=== PATIENT | male | born 1985 | race African-American/Black ===

== ENCOUNTER 2018-11-16 11:30 | Emergency (ER) | payer MEDICAID ==
[~2018-11-16] VITALS: Ht 180.3 cm; Wt 81.2 kg
--- NOTE | 2018-11-16 11:43 | NUR ---
ED Nurse Note: Pt came into the ER w/ complaints of constipation x 4 days. A + O x4. Ambulatory. Skin warm to touch. Denies pain, n, v.
[2018-11-16 11:44] VITALS: BP 115/77
[2018-11-16] MEDS ORDERED: NKM (11:45)
--- NOTE | 2018-11-16 12:10 | NUR ---
ED Nurse Note: Xray at the bedside.
--- NOTE | 2018-11-16 12:18 | Emergency Room Report ---
History of Present Illness General Chief Complaint: Constipation Source: Patient Present Illness HPI 32-year-old male patient presents the ER complaining of constipation for the past several days. Reports prior to onset of constipation he had some diarrhea after taking Ex-Lax laxatives. States has not taken laxatives for several days. Reports able to pass flatus. Denies abdominal pain. Denies fever, chest pain, shortness of breath. Denies other aggravating or relieving factors. Denies recent travel outside the country. Denies blood in stool. Denies blood in diarrhea. denies other aggravating or relieving factors. States has been able to tolerate PO fluids and food. Allergies: Coded Allergies: No Known Allergies (Unverified , 11/16/18) Patient History Past Medical History: see triage record Reviewed Nursing Documentation: PMH: Agreed; PSxH: Agreed Nursing Documentation-PMH Past Medical History: No Stated History Review of Systems All Other Systems: negative except mentioned in HPI Physical Exam Vital Signs Date Time Temp Pulse Resp B/P (MAP) Pulse Ox O2 Delivery O2 Flow Rate FiO2 11/16/18 11:39 98.1 55 15 118/72 98 Room Air Sp02 EP Interpretation: reviewed, normal Head: normocephalic, atraumatic Eyes: bilateral eye normal inspection, bilateral eye PERRL ENT: hearing grossly normal, normal pharynx, no angioedema, normal voice, uvula midline, moist mucus membranes Neck: full range of motion Respiratory: lungs clear, normal breath sounds, no rhonchi, no respiratory distress, no accessory muscle use, no wheezing, speaking full sentences Cardiovascular #1: regular rate, rhythm, no edema Gastrointestinal: non tender, soft, no mass, non-distended, no guarding, no rebound Musculoskeletal: back normal, digits/nails normal, gait/station normal, normal range of motion, non-tender Neurologic: alert, oriented x3, responsive, motor strength/tone normal, sensory intact Psychiatric: mood/affect normal Skin: no rash Medical Decision Making PA Attestation Dr. Torres is my supervising Physician whom patient management has been discussed with. Diagnostic Impression: Primary Impression: Constipation ER Course Pt presents to ED c/o generalized abdominal pain. DDX considered but are not limited to cystitis, pyelonephritis, constipation, SBO, fecal impaction. Low suspicion for appendicitis, no TTP at McBurney's point, negative Rovsing sign. VITAL SIGNS are WNL, patient is afebrile. ER COURSE No abdominal TTP. bowel sounds normal, low suspicion for SBO. KUB shows mild constipation. Patient is resting comfortably in chair, nontoxic appearing, in no acute distress. Patient states they feel better and is ready to go home. ER precautions given. DISCHARGE: -Rx provided for Lactulose Will provide with patient care instructions and any necessary prescriptions. Patient understands and agrees to treatment plan. Patient encouraged to drink plenty of fluids. Patient to take medication as instructed. Care plan and follow-up instructions provided. Patient questions asked and answered. Patient instructed to follow-up with room service clerk in 3 - 5 days. ER precautions given. Patient instructed to return to ER immediately for any new or worsening of symptoms. Including but not limited to fever, worsening pain , intractable vomiting. - Please note that this Emergency Department Report was dictated using [employer] member technology software, occasionally this can lead to erroneous entry secondary to interpretation by the dictation equipment.ient is afebrile. Other X-Ray Diagnostic Results Other X-Ray Diagnostic Results : X-Ray ordered: KUB # of Views/Limited Vs Complete: 1 View Indication: Pain EP Interpretation: Yes PA Xray: Interpretation reviewed, by supervising MD, and agrees with findings. Interpretation: no dislocation, no soft tissue swelling, no fractures, nonspecific bowel gas, no sbo, other - Mild fecal retention in the descending colon and rectum suggesting mild constipation Impression: Other - Constipation PA Scribe Text Cristhian Bland PA-Lorne Last Vital Signs Date Time Temp Pulse Resp B/P (MAP) Pulse Ox O2 Delivery O2 Flow Rate FiO2 11/16/18 11:44 98.1 78 18 115/77 98 Room Air Disposition: HOME, SELF-CARE Condition: Stable Scripts Lactulose (LACTULOSE*) 20 Gm/30 Ml Solution 30 ML ORAL DAILY for 4 Days, #120 ML 0 Refills Prov: Jeffery Bland 11/16/18 Patient Instructions: Constipation, Adult Additional Instructions: Followup with primary care provider in 3 -5 days. Drink plenty of fluids. Take medications as directed. Patient questions asked and answered. ER precautions given, patient instructed to return to ER immediately for any new or worsening of symptoms. Jeffery Bland Nov 16, 2018 12:18
--- NOTE | 2018-11-16 12:24 | Diagnostic Imaging Report ---
EXAM: XR Abdomen, 2 Views CLINICAL HISTORY: Constipation TECHNIQUE: Frontal supine views of the abdomen/pelvis. COMPARISON: No relevant prior studies available. FINDINGS: Lower thorax: The lung bases appear clear. Intraperitoneal space: No visible free air under the diaphragm. Gastrointestinal tract: Mild fecal retention in the descending colon and rectum, which suggests mild constipation. Bowel gas pattern is otherwise unremarkable. No evidence of pneumatosis intestinalis. Organs: Renal shadows are obscured by overlying bowel gas. No abnormal calcifications in the abdomen or pelvis. Bones/joints: Unremarkable. IMPRESSION: Mild fecal retention in the descending colon and rectum, suggesting mild constipation.
[2018-11-16] MEDS ORDERED: LACTULOSE20 GM/301 ORAL (12:36)
--- NOTE | 2018-11-16 12:47 | NUR ---
ER DISCHARGE NOTE: Patient is cleared to be discharged per ERMD, pt is aox4, on room air, with stable vital signs. pt was given dc and prescription instructions, pt was able to verbalize understanding, pt id band removed without complications. pt is able to ambulate with steady gait. pt took all belongings.
== END 2018-11-16 12:47 | disposition home or self-care (01) ==
LOC: EMR 12:40
DX: K59.00 Constipation, unspecified (principal)
CPT/HCPCS: 74018; 99283

== ENCOUNTER 2018-11-22 10:15 | Emergency (ER) | payer MEDICAID ==
[~2018-11-22] VITALS: Ht 180.3 cm; Wt 80.7 kg
[2018-11-22] MEDS: Fleet's Enema 133ml RECTAL ONE ×2 (10:00→14:56)
[~2018-11-22 10:15] MED LIST: LACTULOSE20 GM/301 ORAL; NKM
[2018-11-22 10:35] VITALS: BP 110/60
--- NOTE | 2018-11-22 10:36 | NUR ---
ED Nurse Note: Pt walked in to ER c/o constipation. per pt, he had BM this morning but very small. pt had abdominal pain yesterday but not at this moment. pt aao x4 and calm.
--- NOTE | 2018-11-22 11:30 | NUR ---
ED Nurse Note: Received verbal order from ERPA to hold Enema at this moment. will wait for further order.
--- NOTE | 2018-11-22 11:40 | Emergency Room Report ---
History of Present Illness General Chief Complaint: Constipation Source: Patient Present Illness HPI 32-year-old male patient presents the ER complaining of constipation for the past few weeks. Patient was previously seen in the ER a few days ago and prescribed lactulose, states that after taking lactulose he had one day of diarrhea and then no other symptoms following that time. Reports small pebble and sometimes string-like stool since that time. Denies blood in stool. Denies fever, chest pain, shortness of breath. Denies vomiting. Reports mild left lower quadrant pain during that time. States that he has been taking Colace and Ex-Lax at home, states that he follow with primary care provider and states that she was going to provide him with a "powder" for treatment however she did not, does not know name of treatment. Reports history of weight loss for the past several months. Reports concern that he will not pass the food when eating normally 3 full meals a day. Allergies: Coded Allergies: No Known Allergies (Unverified , 11/16/18) Patient History Past Medical History: see triage record Reviewed Nursing Documentation: PMH: Agreed; PSxH: Agreed Nursing Documentation-PMH Past Medical History: No Stated History Review of Systems All Other Systems: negative except mentioned in HPI Physical Exam Vital Signs Date Time Temp Pulse Resp B/P (MAP) Pulse Ox O2 Delivery O2 Flow Rate FiO2 11/22/18 10:26 97.9 62 14 110/60 99 Room Air Sp02 EP Interpretation: reviewed, normal General Appearance: well appearing, no apparent distress, alert, GCS 15, non- toxic Head: normocephalic, atraumatic Eyes: bilateral eye normal inspection, bilateral eye PERRL ENT: hearing grossly normal, normal pharynx, no angioedema, normal voice, uvula midline, moist mucus membranes Neck: full range of motion, no bony tend Respiratory: lungs clear, normal breath sounds, no rhonchi, no respiratory distress, no accessory muscle use, no wheezing, speaking full sentences Cardiovascular #1: regular rate, rhythm, no edema Gastrointestinal: normal bowel sounds, non tender, soft, no mass, non-distended , no guarding, no rebound Genitourinary: no CVA tenderness Musculoskeletal: back normal, digits/nails normal, gait/station normal, normal range of motion, non-tender Neurologic: alert, oriented x3, responsive, motor strength/tone normal, sensory intact Skin: no rash Medical Decision Making PA Attestation Dr. Ruelas is my supervising Physician whom patient management has been discussed with. Diagnostic Impression: Primary Impression: Constipation Additional Impression: Abdominal pain ER Course Pt. presents to the ED c/o abdominal pain and constipation. Ddx considered but are not limited to UTI, diverticulitis, constipation, malignancy, fecal impaction. Due to continued complaints of pain and constipation, will order CT to rule out underlying malignancy or etiology. Vital signs: are WNL, pt. is afebrile ORDERS: CBC, CMP, Lipase, CT abdomen pelvis. ER COURSE: CBC and CMP unremarkable, no elevation WBCs or LFTs UA unremarkable, denies dysuria hematuria, low suspicion for UTI. Discussed results with patient CT abdomen and pelvis moderate retained feces, no acute disease. will perform enema in ER. Provide with Fleet enema ER, patient reports that great bowels. Reports feeling better. ER precautions given. Followup with PCP for further evaluation and treatment. DISCHARGE: At this time pt. is stable for d/c to home. Patient resting comfortably, in no acute distress, nontoxic appearing, talking without difficulty. Rx provided to patient. Patient to take medications as instructed Will provide with patient care instructions and any necessary prescriptions. Care plan and follow-up instructions provided. Patient instructed to follow-up with primary care provider in 3 - 5 days. Patient questions asked and answered. Patient reports understanding and agreement to treatment plan. ER precautions given. Patient instructed to return to ER immediately for any new or worsening of symptoms including but not limited to increasing SOB, persistent fever, worsening of pain symptoms, intractable vomiting, blood in stool, urine, and/or emesis. - Please note that this Emergency Department Report was dictated using [employer] tender technology software, occasionally this can lead to erroneous entry secondary to interpretation by the dictation equipment. Labs Test 11/22/18 11:40 11/22/18 11:55 White Blood Count 3.4 K/UL (4.8-10.8) Red Blood Count 5.31 M/UL (4.70-6.10) Hemoglobin 16.5 G/DL (14.2-18.0) Hematocrit 48.2 % (42.0-52.0) Mean Corpuscular Volume 91 FL (80-99) Mean Corpuscular Hemoglobin 31.0 PG (27.0-31.0) Mean Corpuscular Hemoglobin Concent 34.2 G/DL (32.0-36.0) Red Cell Distribution Width 10.9 % (11.6-14.8) Platelet Count 150 K/UL (150-450) Mean Platelet Volume 7.1 FL (6.5-10.1) Neutrophils (%) (Auto) % (45.0-75.0) Lymphocytes (%) (Auto) % (20.0-45.0) Monocytes (%) (Auto) % (1.0-10.0) Eosinophils (%) (Auto) % (0.0-3.0) Basophils (%) (Auto) % (0.0-2.0) Differential Total Cells Counted 100 Neutrophils % (Manual) 55 % (45-75) Lymphocytes % (Manual) 39 % (20-45) Monocytes % (Manual) 6 % (1-10) Eosinophils % (Manual) 0 % (0-3) Basophils % (Manual) 0 % (0-2) Band Neutrophils 0 % (0-8) Platelet Estimate Adequate Platelet Morphology Normal Red Blood Cell Morphology Normal Sodium Level 139 MMOL/L (136-145) Potassium Level 3.9 MMOL/L (3.5-5.1) Chloride Level 102 MMOL/L (98-107) Carbon Dioxide Level 31 MMOL/L (21-32) Anion Gap 6 mmol/L (5-15) Blood Urea Nitrogen 12 mg/dL (7-18) Creatinine 1.2 MG/DL (0.55-1.30) Estimat Glomerular Filtration Rate > 60 mL/min (>60) Glucose Level 85 MG/DL (74-106) Calcium Level 9.6 MG/DL (8.5-10.1) Total Bilirubin 1.4 MG/DL (0.2-1.0) Direct Bilirubin 0.2 MG/DL (0.0-0.3) Aspartate Amino Transf (AST/SGOT) 18 U/L (15-37) Alanine Aminotransferase (ALT/SGPT) 20 U/L (12-78) Alkaline Phosphatase 69 U/L (46-116) Total Protein 8.1 G/DL (6.4-8.2) Albumin 4.5 G/DL (3.4-5.0) Globulin 3.6 g/dL Albumin/Globulin Ratio 1.2 (1.0-2.7) Urine Color Yellow Urine Appearance Clear Urine pH 7 (4.5-8.0) Urine Specific [place] 1.015 (1.005-1.035) Urine Protein 1+ (NEGATIVE) Urine Glucose (UA) Negative (NEGATIVE) Urine Ketones 1+ (NEGATIVE) Urine Blood Negative (NEGATIVE) Urine Nitrite Negative (NEGATIVE) Urine Bilirubin Negative (NEGATIVE) Urine Urobilinogen 1 MG/DL (0.0-1.0) Urine Leukocyte Esterase 1+ (NEGATIVE) Urine RBC 0 /HPF (0 - 0) Urine WBC 0-2 /HPF (0 - 0) Urine Squamous Epithelial Cells Occasional /LPF Urine Bacteria Occasional /HPF (NONE) Urine Mucus Moderate /LPF (NONE/OCC) CT/MRI/US Diagnostic Results CT/MRI/US Diagnostic Results : Imaging Test Ordered: CT abdomen pelvis with contrast Impression Impression: Moderate retained feces, presumably related to stated clinical history of constipation, findings nonspecific as regards etiology No acute abnormality otherwise Last Vital Signs Date Time Temp Pulse Resp B/P (MAP) Pulse Ox O2 Delivery O2 Flow Rate FiO2 11/22/18 10:35 97.9 81 14 110/60 99 Room Air Status: improved Disposition: HOME, SELF-CARE Condition: Stable Scripts Polyethylene Glycol 3350* (MIRALAX*) 17 Gm Powd.pack 17 GM ORAL DAILY, #30 PACKET Prov: Jeffery Bland 11/22/18 Docusate Sodium* (COLACE*) 100 Mg Capsule 100 MG ORAL TWICE A DAY for 30 Days, #60 CAP Prov: Jeffery Bland 11/22/18 Referrals: NON PHYSICIAN (PCP) Patient Instructions: Constipation, Adult Additional Instructions: Followup with primary care provider in 3 -5 days. Drink plenty fluids. High-fiber diet. Take Miralax as instructed. Take daily, when diarrhea begins, take every other day, when diarrhea begins again take every 2 days. Titrate to soft stool. take medications as instructed. Patient questions asked and answered. ER precautions given, patient instructed to return to ER immediately for any new or worsening of symptoms. Jeffery Bland Nov 22, 2018 11:40
--- NOTE | 2018-11-22 11:45 | NUR ---
ED Nurse Note: BLOOD SPECIMENS SENT DOWN TO THE LAB.
[2018-11-22 12:00] LABS: HEMATOCRIT 48.2 % (42.0-52.0); HEMOGLOBIN 16.5 G/DL (14.2-18.0); MEAN CORPUSCULAR VOLUME 91 FL (80-99); PLATELET COUNT 150 K/UL (150-450); RED BLOOD COUNT 5.31 M/UL (4.70-6.10); RED CELL DISTRIBUTION WIDTH 10.9 % (11.6-14.8); WHITE BLOOD COUNT 3.4 K/UL (4.8-10.8)
--- NOTE | 2018-11-22 12:02 | NUR ---
ED Nurse Note: pt swallowed solution for CT. it takes about 90 minutes for the solution to go down and being effective. pt will be taken to CT at 1330.
[2018-11-22 12:06] LABS: APPEARANCE,URINE CLEAR; BILIRUBIN, URINE NEGATIVE (NEGATIVE); GLUCOSE, URINE (UA) NEGATIVE (NEGATIVE); KETONES,URINE 1+ (NEGATIVE); LEUKOCYTE ESTERASE ,URINE 1+ (NEGATIVE); NITRITE,URINE NEGATIVE (NEGATIVE); PH,URINE 7 (4.5-8.0); PROTEIN,URINE 1+ (NEGATIVE); UROBILINOGEN,URINE 1 MG/DL (0.0-1.0)
[2018-11-22 12:07] LABS: COLOR,URINE YELLOW
[2018-11-22 12:08] LABS: ANION GAP 6 mmol/L (5-15); BLOOD UREA NITROGEN 12 mg/dL (7-18); CALCIUM 9.6 MG/DL (8.5-10.1); CARBON DIOXIDE 31 MMOL/L (21-32); CHLORIDE 102 MMOL/L (98-107); CREATININE 1.2 MG/DL (0.55-1.30); POTASSIUM 3.9 MMOL/L (3.5-5.1); SODIUM 139 MMOL/L (136-145)
[2018-11-22 12:19] LABS: ALANINE AMINOTRANSFERASE 20 U/L (12-78); ALBUMIN 4.5 G/DL (3.4-5.0); ALBUMIN/GLOBULIN RATIO 1.2 (1.0-2.7); ALKALINE PHOSPHATASE 69 U/L (46-116); ASPARTATE AMINO TRANSFERASE 18 U/L (15-37); BILIRUBIN,TOTAL 1.4 MG/DL (0.2-1.0)
[2018-11-22 12:21] LABS: BILIRUBIN,DIRECT 0.2 MG/DL (0.0-0.3)
[2018-11-22 12:35] VITALS: BP 118/65
--- NOTE | 2018-11-22 14:38 | Diagnostic Imaging Report ---
Clinical Indication: Constipation for the past few weeks Technique: Patient ingested oral contrast IV administration nonionic contrast. Venous phase spiral acquisition obtained through the abdomen and pelvis. Multiplanar reconstructions were generated. Total dose length product 644.21 mGycm. CTDIvol(s) 13.21 mGy. Dose reduction achieved using automated exposure control Comparison: The appendix is normal. No small bowel distention Findings: Moderate amount of retained stool is seen throughout the colon. Comparing the put in beat adjuster image with the prior abdominal radiograph, this appears increased from 11/16/2018. Ingested contrast is seen throughout most but not all of the small bowel, does not reach the colon or terminal ileum. Some retained food is seen within the stomach. No small bowel distention or small bowel wall thickening. No free or loculated intraperitoneal air or fluid is evident. Distal esophagus and duodenum are unremarkable. The liver, gallbladder, bile ducts, pancreas, spleen, adrenals, kidneys are all unremarkable. No retroperitoneal or mesenteric mass or adenopathy. No pelvic mass or adenopathy. The included lung bases are clear. The bones are unremarkable. Impression: Moderate retained feces, presumably related to stated clinical history of constipation, findings nonspecific as regards etiology No acute abnormality otherwise The CT scanner at [facility] is accredited by the [employer] and the scans are performed using protocols designed to limit radiation exposure to as low as reasonably achievable to attain images of sufficient resolution adequate for diagnostic evaluation.
--- NOTE | 2018-11-22 14:56 | NUR ---
ED Nurse Note: fleet enema was given on left side lying position.
--- NOTE | 2018-11-22 15:26 | NUR ---
ED Nurse Note: pt reported that he had large BM.
[2018-11-22] MEDS ORDERED: MIRALAX17 G2 ORAL (15:34)
[2018-11-22] MEDS ORDERED: COLACE100 MG ORAL (15:34)
[2018-11-22 15:57] VITALS: BP 122/78
--- NOTE | 2018-11-22 15:58 | NUR ---
ER DISCHARGE NOTE: Patient is cleared to be discharged per ERMD, pt is aox4, on room air, with stable vital signs. pt was given dc and prescription instructions, pt was able to verbalize understanding, pt id band and iv site removed without complications. pt is able to ambulate with steady gait. pt took all belongings.
== END 2018-11-22 15:59 | disposition home or self-care (01) ==
LOC: EMR 10:50
DX: K59.00 Constipation, unspecified (principal); R10.9 Unspecified abdominal pain
CPT/HCPCS: 36415; 74177; 80053; 81003; 82248; 85007; 85025; 99284; Q9967